=== PATIENT | male | born 1985 ===

== ENCOUNTER 2021-07-08 12:27 | Emergency (ER) | payer MEDICAID, SELFPAY ==
--- NOTE | ~2021-07-08 | XR_ITS ---
EXAMINATION: XR ankle LT min 3V DATE: 07/08/2021 12:48 INDICATION: Left ankle pain. Fall. TECHNIQUE: 4 views of left ankle were obtained. COMPARISON: Left ankle radiographs 11/02/2011 FINDINGS: There is a spiral fracture of distal fibula. The medial aspect of the fracture line is 7 mm proximal to the level of the tibial plafond. The distal fracture fragment demonstrates one cortical width posterolateral displacement. Pes planus is noted. Joint spaces are normal. There is ankle soft tissue swelling. IMPRESSION: 1. Spiral fracture of distal fibula. Reviewed, dictated and finalized at location A. RESOURCE NURSE
--- NOTE | 2021-07-08 12:29 | ED.LOWEXIN ---
HPI - Extremity Injury (Lower) General Chief Complaint: Extremity Injury, Lower Stated Complaint: left ankle injury Time Seen by Provider: 07/08/21 12:55 Source: patient and RN notes reviewed Mode of arrival: ambulatory Limitations: no limitations History of Present Illness HPI Narrative: 36-year-old male presents concern for left ankle injury. Reports today just prior to arrival he slipped on icy sidewalk. Reports he fell and twisted his left ankle. Reports left ankle swelling, pain, pain with weightbearing. He denies distal decreased sensation, strength. MD complaint: ankle injury Related Data Allergies Allergy/AdvReac Type Severity Reaction Status Date / Time amoxicillin Allergy Unknown rash Verified 07/08/21 12:41 Review of Systems Review of Systems: CONSTITUTIONAL: Denies malaise, chills, sweats, or fever. SKIN: Denies rash or itching, open skin, laceration, abrasion, redness, warmth MUSCULOSKELETAL: Reports left ankle pain, bruising, and swelling NEUROLOGIC: Denies numbness, weakness All systems reviewed & are unremarkable except as noted in HPI and below PMFSH Comments At time of signature, agree with nursing past medical, surgical, social and family history. There is no relevant family history pertinent to the presenting complaint Exam Narrative: GENERAL: Well-appearing, well-nourished, and in no acute distress. HEAD: Normocephalic, atraumatic. EYES: PERRLA, conjunctivae clear NECK: Supple. CHEST: Speaks in full sentences. No respiratory distress. HEART: Regular rate and rhythm. Normal and equal peripheral pulses. EXTREMITIES: Left ankle, foot, digits have normal strength and sensation, limited range of motion. Moderate lateral edema, mild ecchymosis. 5/5 strength with digit flexion and extension. Normal sensation with sensitivity to light touch and pain. Lateral ankle tenderness. No open wounds, no skin tenting, no devitalized tissue or atrophy, no trophic changes, no obvious deformity, alignment normal, nearby joints and structures intact. Distal pulses palpable and equal bilaterally, skin warm, dry, pink. Capillary refill less than 3 seconds. SKIN: Warm, dry, no rash. NEURO: Alert and oriented x3. PSYCH: Normal mood and affect Course Course Emergency Course: Patient refuses to allow splint placement, educated patient on importance of splint placement patient continues to refuse. Patient is aware of diagnosis, understands and agrees to treatment plan. Anticipatory guidance given. Patient agrees to follow-up as directed and is aware of reasons to seek care at the emergency department. Portions of this record may have been created with voice recognition software Level of Care: Express Care Visit Vital Signs Vital signs: Reviewed. Procedures Orthopedic Splinting/Casting Injury #1: Additional Comments: Patient refused to allow splint placement MDM - Extremity Injury (Lower) MDM Narrative Medical decision making narrative: Patients injury and pain is consistent with musculoskeletal etiology. No signs of neurological or vascular compromise on exam. Compartments and tissues are soft without signs of compartment syndrome. Pain is felt appropriate for further evaluation on an outpatient basis. Imaging Data My impression: Images reviewed, interpreted by radiologist, agree, see report. Radiologist's impression: EXAMINATION: XR ankle LT min 3V DATE: 07/08/2021 12:48 INDICATION: Left ankle pain. Fall. TECHNIQUE: 4 views of left ankle were obtained. COMPARISON: Left ankle radiographs 11/02/2011 FINDINGS: There is a spiral fracture of distal fibula. The medial aspect of the fracture line is 7 mm proximal to the level of the tibial plafond. The distal fracture fragment demonstrates one cortical width posterolateral displacement. Pes planus is noted. Joint spaces are normal. There is ankle soft tissue swelling. IMPRESSION: 1. Spiral fracture of distal fibula. Critical Care Time Critical Care Time Critic
[2021-07-08 12:39] VITALS: BP 113/72; PULSE 104; RESP 16; TEMP 36.7; O2SAT 100
[2021-07-08 12:41] VITALS: BP 113/72; PULSE 104; RESP 16; TEMP 36.7; O2SAT 100
== END 2021-07-08 13:40 | disposition home or self-care (01) ==
PROVIDERS: Emergency Provider Nurse Practitioner
DX: S82.832A Other fracture of upper and lower end of left fibula, initial encounter for closed fracture (principal); W00.0XXA Fall on same level due to ice and snow, initial encounter
CPT/HCPCS: 73610; 99204; G0463

== ENCOUNTER 2021-09-20 09:03 | Outpatient (CLI) | payer MEDICAID, SELFPAY ==
--- NOTE | ~2021-09-20 | CT_ITS ---
EXAMINATION: CT foot LT wo con DATE: 09/20/2021 09:28 INDICATION: Left foot pain TECHNIQUE: High resolution computed tomography (CT) of the left foot and ankle was performed without intravenous contrast. Additional sagittal and coronal reconstructions were performed. Automated expos ure control and iterative reconstruction technique were employed. The dose-length product was 602.93 mGy-cm. COMPARISON: Radiographs dated 07/08/2021 FINDINGS: Again seen is an oblique fracture of the distal left fibula with fracture line exiting medially at th e level of the tibiotalar joint line. The fracture remains ununited with very small amount of callus formation along the posterior margin of the fracture. Alignment of the fracture remains near-anatomic . Normal alignment in the left foot with no additional fractures. There is diffuse osteopenia in the foot which may be related to disuse. Joint spaces appear relatively preserved. Small heterotopic ossi fication along the anterior talofibular ligament consistent with sequela of chronic sprain. No ankle joint effusion. Diffuse subcutaneous edema about the distal lower leg and ankle with lateral sided pr edominance and extending over the dorsum of the foot. IMPRESSION: 1. Very small amount of callus formation along the posterior margin of a still ununited oblique fract ure of the distal left fibula. 2. Diffuse likely disuse osteopenia osteopenia in the left foot but no fracture or traumatic malalign ment. Reviewed, dictated and finalized at location A. IMPRESSION: 1. Very small amount of callus formation along the posterior margin of a still ununited oblique fracture of the distal left fibula. 2. Diffuse likely disuse osteopenia osteopenia in the left foot but no fracture or traumatic malalignment.
== END 2021-09-20 09:04 | disposition home or self-care (01) ==
LOC: ANHIMG 09:09
PROVIDERS: Visit Provider Orthopaedic Surgery
DX: M19.072 Primary osteoarthritis, left ankle and foot (principal)
CPT/HCPCS: 73700

== ENCOUNTER 2024-04-24 15:09 | Emergency (ER) | payer MEDICAID, SELFPAY ==
--- NOTE | ~2024-04-24 | XR_ITS ---
XR hip RT 2V w AP pelvis Ordering provider: Concepcion Hoskins APRN History: . no injury right hip to groin pain for 2 weeks . Comparison: None. FINDINGS: BONES: No acute fracture or dislocation. HIP JOINT SPACES: Normal. SACROILIAC JOINT SPACES/LUMBAR SPINE: The sacroiliac joint spaces are normal. Normal visualized lower lumbar spine. PUBIC SYMPHYSIS: Normal. SOFT TISSUES: Normal. IMPRESSION: No acute osseous abnormality pelvis and right hip. Reviewed, dictated and finalized at location A.
[2024-04-24 15:18] VITALS: BP 133/89; PULSE 91; RESP 18; TEMP 36.8; O2SAT 100
--- NOTE | 2024-04-24 15:18 | ED.GENADULT ---
HPI - General Adult General Chief complaint: Wound/Laceration Stated complaint: Hip pain Time Seen by Provider: 04/24/24 15:21 Source: patient Mode of arrival: ambulatory Limitations: no limitations History of Present Illness HPI narrative: 38 y/o male presented for c/o right hip pain x2 weeks following injury. States he was on his knees and felt pain to the right hip when he transitioned positions during sexual activity. Pain is mostly in the hip/groin area, also has pain to posterior hip which also radiates to the groin. Pain is worse when walking, up to 9/10 at times. Pain is described as the 'hip feels loose' as well as 'sharp needles to the hip.' Denies testicular pain or swelling, groin swelling Denies pain radiating into the legs, numbness, tingling, weakness of the lower extremities, or change in gait, saddle paresthesia or loss of bowel or bladder. Has taken ibuprofen. Related Data Allergies Allergy/AdvReac Type Severity Reaction Status Date / Time amoxicillin Allergy Unknown rash Verified 11/20/21 09:31 Review of Systems Review of Systems: CONSTITUTIONAL: Denies body aches, fever, chills CARDIOVASCULAR: Denies chest pain, palpitations, or edema. RESPIRATORY: Denies cough or dyspnea. SKIN: Denies rash MUSCULOSKELETAL: reports right hip pain NEUROLOGIC: Denies headache, numbness, tingling, or weakness. All systems reviewed & are unremarkable except as noted in HPI and below PMFSH Past Medical History Medical History History of MRSA infection Social History Social History Alcohol intake: never Substance use: never Living arrangements: with family Gender identity (if verbalized by the patient): Male Comments At time of signature, I have reviewed and agree with nursing past medical, surgical, social and family history unless otherwise noted. Please see nursing chart for further information. There is no relevant family history pertinent to the presenting complaint Exam Narrative: GENERAL: Well-appearing CHEST: Speaks in full sentences. No respiratory distress. HEART: Regular rate and rhythm. Normal and equal peripheral pulses. EXTREMITIES: RLE has normal strength and sensation, slightly limited range of motion with flexion/extension/rotation of right hip due to pain with movement. Anterior and posterior hip is tender with palpation, nontender laterally. No ecchymosis, No open wounds, or obvious deformity; alignment normal, pulse palpable and equal bilaterally, skin warm, dry, pink. Capillary refill less than 3 seconds. SKIN: Warm, dry, no rash. NEURO: Alert and oriented x3. Course Course Emergency Course: Patient is aware of diagnosis, understands and agrees to treatment plan. Anticipatory guidance given. Patient agrees to follow-up as directed and is aware of reasons to seek care at the emergency department. Portions of this record may have been created with voice recognition software Level of Care: Express Care Visit Vital Signs Vital signs: Vital Signs Temperature 98.3 F 04/24/24 15:18 Pulse Rate 91 04/24/24 15:18 Respiratory Rate 18 04/24/24 15:18 Blood Pressure 133/89 04/24/24 15:18 Pulse Oximetry 100 04/24/24 15:18 Oxygen Delivery Room Air 04/24/24 15:18 Temperature 98.3 F 04/24/24 15:18 Pulse Rate 91 04/24/24 15:18 Respiratory Rate 18 04/24/24 15:18 Blood Pressure 133/89 04/24/24 15:18 Pulse Oximetry 100 04/24/24 15:18 Oxygen Delivery Room Air 04/24/24 15:18 Reviewed Medical Decision Making MDM Narrative Medical decision making narrative: Discussed physical exam findings and Xray. Advised supportive measures and signs/symptoms to go to the ER. Pt is appropriate for outpt treatment and f/u. Differential Diagnosis Differential Diagnosis: Hip dislocation, impingement, femur fracture, pelvic fracture, hip bursitis, psoas abscess, piriformis syndrome, septic arthritis, osteoarthritis, avascular necrosis of hip, lumbar radiculopathy Vital Signs Vital Signs: Vital Signs Temperature 98.3 F 04/24/24 15:18 Pulse Rate 91 04/24/24 15:18 Respiratory Rate 18 04/24/24 15:18 Blood Pressure 133/89 04/24/24 15:18 Pulse Oximetry 100 04/24/24 15:18 Oxygen Delivery Room Air 04/24/24 15:18 Temperature 98.3 F 04/24/24 15:18 Pulse Rate 91 04/24/24 15:18 Respiratory Rate 18 04/24/24 15:18 Blood Pressure 133/89 10/25/24 15:18 Pulse Oximetry 100 04/24/24 15:18 Oxygen Delivery Room Air 04/24/24 15:18 Imaging Data Radiologist's impression: Patient: Abdiaziz Nina : 1985 MR#: [id number] Age: 38 Acct:[id number] Loc: [id number] ADM Date: 04/24/24Attending Dr: Ordering Physician: Concepcion Hoskins APRN Date of Service: 04/24/24 Procedure(s): XR hip RT 2V w AP pelvis Accession Number(s): [id number] cc: Concepcion Hoskins APRN; UNKNOWN,DOCTOR~ XR hip RT 2V w AP pelvis Ordering provider: Concepcion Hoskins APRN History: . no injury right hip to groin pain for 2 weeks . Comparison: None. FINDINGS: BONES: No acute fracture or dislocation. HIP JOINT SPACES: Normal. SACROILIAC JOINT SPACES/LUMBAR SPINE: The sacroiliac joint spaces are normal. Normal visualized lower lumbar spine. PUBIC SYMPHYSIS: Normal. SOFT TISSUES: Normal. IMPRESSION: No acute osseous abnormality pelvis and right hip. Discharge Plan Discharge Clinical Impression: Acute pain of right hip Patient Disposition: Home, Self-Care Condition: Stable Instructions: Hip Sprain (ED) Additional Instructions: Rest and elevate the right leg; bear weight as tolerated Apply ice 15-20 minute intervals several times a day Motrin 800mg every 8 hours, alternate with Tylenol 1000mg every 8 hours as needed Follow up with your primary care provider as needed in 3 days Go to the ER for worsening symptoms or concerns Prescriptions: New cyclobenzaprine 10 mg tablet 10 mg PO TID PRN (Reason: muscle spasm) Qty: 12 0RF prednisone 20 mg tablet 20 mg PO DAILY Qty: 18 0RF Rx Instructions: take 3 tablets daily for 3 days, then 2 tablets daily for 3 days then 1 tablet daily for 3 days No Action ibuprofen 800 mg tablet 800 mg PO Q6H PRN (Reason: pain) Qty: 30 0RF hydrocodone-acetaminophen 7.5-325 mg tablet 1 tablet PO BID PRN (Reason: pain) Qty: 20 0RF Follow-up/Referrals: Kale Logan MD [Physician] - UNKNOWN,DOCTOR [Primary Care Provider] - Time of Disposition: 16:02
== END 2024-04-24 16:05 | disposition home or self-care (01) ==
PROVIDERS: Emergency Provider Nurse Practitioner Family
DX: M25.551 Pain in right hip (principal); Z86.14 Personal history of Methicillin resistant Staphylococcus aureus infection
CPT/HCPCS: 73502; 99213; G0463